=== PATIENT | male | born 1985 | race Caucasian/White ===

== ENCOUNTER 2021-11-20 11:22 | Emergency (ER) | payer MEDICAID ==
[~2021-11-20] VITALS: Ht 193 cm; Wt 63.6 kg
[2021-11-20] MEDS ORDERED: normal saline 1000ML IV soln IVB ONE (13:20)
[2021-11-20] MEDS ORDERED: folic acid 1mg/0.2ml inj IV ONE (13:20)
[2021-11-20] MEDS ORDERED: thiamine 100mg/ml 2ml inj. IV ONE (13:20)
[2021-11-20] MEDS ORDERED: ondansetron/PF 4mg/2ml inj IV ONE (13:20)
[2021-11-20] MEDS ORDERED: LORazepam 2 mg/ml vial IV ONE ×2 (13:20→14:45)
[2021-11-20 14:13] LABS: BASOPHILS # (AUTO) 0.1 X10'3 (0-0.2); BASOPHILS % (AUTO) 1.1 % (0-1); EOSINOPHILS # (AUTO) 0.1 X10'3 (0-0.9); EOSINOPHILS % (AUTO) 1.6 % (0-6); HEMATOCRIT 34.8 % (42.0-52.0); HEMOGLOBIN 11.8 g/dl (14.0-17.9); LYMPHOCYTES # (AUTO) 1.2 X10'3 (1.1-4.8); LYMPHOCYTES % (AUTO) 23.3 % (21-51); MEAN CORPUSCULAR HEMOGLOBIN 33.7 PG (27.0-31.0); MEAN PLATELET VOLUME 9.1 FL (7.4-10.4); MONOCYTES # (AUTO) 0.8 X10'3 (0-0.9); MONOCYTES % (AUTO) 15.3 % (2-12); NEUTROPHILS % (AUTO) 58.7 % (42-75); PLATELET COUNT 81 X10'3 (140-440); RED BLOOD COUNT 3.52 X10'6 (4.70-6.10); RED CELL DISTRIBUTION WIDTH 14.3 % (11.5-14.5); WHITE BLOOD COUNT 5.1 X10'3 (4.5-11.0)
[2021-11-20 14:34] LABS: ALANINE AMINOTRANSFERASE 56 U/L (12-78); ALBUMIN 2.7 G/DL (3.4-5.0); ALBUMIN/GLOBULIN RATIO 0.5 (1.1-1.5); ALKALINE PHOSPHATASE 120 IU/L (46-116); ANION GAP 6 (8-16); ASPARTATE AMINO TRANSFERASE 105 U/L (10-37); BILIRUBIN,TOTAL 2.2 MG/DL (0.1-1.0); BLOOD UREA NITROGEN 4 MG/DL (7-18); BUN/CREATININE RATIO 5.2 (5.4-32.0); CALCIUM 8.8 MG/DL (8.5-10.1); CHLORIDE 103 MMOL/L (99-107); CREATININE 0.77 MG/DL (0.60-1.10); ETHANOL < 0.010 GM/DL (0.0-0.010); LIPASE 92 U/L (73-393); POTASSIUM 3.5 MMOL/L (3.5-5.1); SODIUM 135 MMOL/L (135-145); TOTAL CARBON DIOXIDE 26.2 MMOL/L (24-32); TOTAL PROTEIN 8.4 G/DL (6.4-8.2); eGFR > 90 ML/MIN
[2021-11-20 14:44] LABS: GLUCOSE 104 MG/DL (70-104)
[2021-11-20] MEDS ORDERED: ONDA4TAB12 PO (14:44)
[2021-11-20] MEDS ORDERED: GABA100C PO (14:44)
[2021-11-20] MEDS ORDERED: LORA-269 PO (14:44)
[2021-11-20 14:55] LABS: PLATELET ESTIMATE DECREASED; TOTAL CELLS COUNTED 100
--- NOTE | 2021-11-20 15:12 | NUR ---
[facility] CALLED AND INSTRUCTED TO TAKE PT TO [facility] [address] AND THEN TO [facility]. INFORMED FAST TRACK RN THAT PT IS TO WAIT IN THE ER LOBBY FOR [facility].
[2021-11-20 15:13] VITALS: BP 139/78
== END 2021-11-20 15:20 | disposition home or self-care (01) ==
LOC: ER 11:23
DX: F10.230 Alcohol dependence with withdrawal, uncomplicated (principal); Z79.899 Other long term (current) drug therapy; Y90.9 Presence of alcohol in blood, level not specified
CPT/HCPCS: 36415; 80053; 80320; 83690; 85007; 85025; 96361; 96374; 96375; 99284; J2060; J2405; J3411; J3490; J7030

== ENCOUNTER 2022-04-02 12:37 | Emergency (ER) | payer MEDICAID ==
[~2022-04-02] VITALS: Ht 193 cm; Wt 76.4 kg
[~2022-04-02 12:37] MED LIST: GABA100C PO; LORA-269 PO; ONDA4TAB12 PO
[2022-04-02 14:16] VITALS: BP 116/66
== END 2022-04-02 14:25 | disposition home or self-care (01) ==
LOC: ER 12:38
DX: S90.01XA Contusion of right ankle, initial encounter (principal); F10.29 Alcohol dependence with unspecified alcohol-induced disorder; X58.XXXA Exposure to other specified factors, initial encounter; Y93.89 Activity, other specified; Y92.89 Other specified places as the place of occurrence of the external cause; Y99.8 Other external cause status
CPT/HCPCS: 99284

== ENCOUNTER 2022-04-04 09:13 | Emergency (ER) | payer MEDICAID ==
[~2022-04-04] VITALS: Ht 193 cm; Wt 75.0 kg
[2022-04-04] MEDS ORDERED: chlordiazePOXIDE 25mg capsule PO ONE (11:35)
[2022-04-04] MEDS ORDERED: LORazepam 2 mg/ml vial IV ONE ×2 (11:35→13:15)
[2022-04-04] MEDS ORDERED: normal saline 1000ML IV soln IVB ONE (11:35)
[2022-04-04] MEDS ORDERED: ondansetron/PF 4mg/2ml inj IV ONE (11:35)
[2022-04-04 12:01] LABS: EOSINOPHILS # (AUTO) 0.2 X10'3 (0-0.9); RED CELL DISTRIBUTION WIDTH 13.2 % (11.5-14.5)
[2022-04-04 12:03] LABS: BASOPHILS # (AUTO) 0.1 X10'3 (0-0.2); BASOPHILS % (AUTO) 1.1 % (0-1); EOSINOPHILS % (AUTO) 2.4 % (0-6); HEMATOCRIT 47.6 % (42.0-52.0); HEMOGLOBIN 16.1 g/dl (14.0-17.9); LYMPHOCYTES # (AUTO) 2.3 X10'3 (1.1-4.8); LYMPHOCYTES % (AUTO) 27.9 % (21-51); MEAN CORPUSCULAR HEMOGLOBIN 31.5 PG (27.0-31.0); MEAN CORPUSCULAR HGB CONC 33.9 g/dL (33.0-36.5); MEAN CORPUSCULAR VOLUME 93.1 FL (78-98); MEAN PLATELET VOLUME 9.1 FL (7.4-10.4); MONOCYTES # (AUTO) 0.7 X10'3 (0-0.9); MONOCYTES % (AUTO) 8.6 % (2-12); NEUTROPHILS # (AUTO) 4.9 X10'3 (1.8-7.7); PLATELET COUNT 278 X10'3 (140-440); RED BLOOD COUNT 5.11 X10'6 (4.70-6.10); WHITE BLOOD COUNT 8.2 X10'3 (4.5-11.0)
[2022-04-04 12:13] LABS: APTT 28 SECONDS (22-32)
[2022-04-04 12:14] LABS: ALANINE AMINOTRANSFERASE 23 U/L (12-78); ALBUMIN 4.1 G/DL (3.4-5.0); ALKALINE PHOSPHATASE 99 IU/L (46-116); ANION GAP 8 (8-16); ASPARTATE AMINO TRANSFERASE 19 U/L (10-37); BILIRUBIN,TOTAL 0.5 MG/DL (0.1-1.0); BLOOD UREA NITROGEN 15 MG/DL (7-18); BUN/CREATININE RATIO 14.2 (5.4-32.0); CALCIUM 9.3 MG/DL (8.5-10.1); CHLORIDE 102 MMOL/L (99-107); CREATININE 1.06 MG/DL (0.60-1.10); ETHANOL < 0.010 GM/DL (0.0-0.010); GLUCOSE 114 MG/DL (70-104); LIPASE 132 U/L (73-393); POTASSIUM 4.3 MMOL/L (3.5-5.1); SODIUM 137 MMOL/L (135-145); TOTAL CARBON DIOXIDE 27.1 MMOL/L (24-32); TOTAL PROTEIN 8.3 G/DL (6.4-8.2); eGFR 78 ML/MIN
[2022-04-04] MEDS ORDERED: LACT10SO3 PO (13:16)
[2022-04-04] MEDS ORDERED: CHLO25CA10 PO (13:16)
[2022-04-04 14:49] VITALS: BP 126/81
== END 2022-04-04 14:50 | disposition home or self-care (01) ==
LOC: ER 09:14
DX: F10.239 Alcohol dependence with withdrawal, unspecified (principal); Z20.822 Contact with and (suspected) exposure to COVID-19; F10.229 Alcohol dependence with intoxication, unspecified; Z79.899 Other long term (current) drug therapy
CPT/HCPCS: 36415; 80053; 80320; 82140; 83690; 85025; 85610; 85730; 87811; 96361; 96374; 96375; 96376; 99285; J2060; J2405; J7030

== ENCOUNTER 2024-01-06 20:22 | Emergency (ER) | payer MEDICAID ==
[~2024-01-06] VITALS: Ht 193 cm; Wt 86.4 kg
[~2024-01-06 20:22] MED LIST changes: +CHLO25CA10 PO; +LACT10SO3 PO; +ONDA-243 PO; -ONDA4TAB12 PO; +SERT25TA PO
[2024-01-06] MEDS: normal saline 1000ml 1,000 ML IV ONE (21:12)
[2024-01-06] MEDS: thiamine 100mg tablet PO ONE (21:25)
[2024-01-06 21:33] LABS: BASOPHILS # (AUTO) 0.1 X10'3 (0-0.2); BASOPHILS % (AUTO) 1.1 % (0-1); EOSINOPHILS # (AUTO) 0.2 X10'3 (0-0.9); EOSINOPHILS % (AUTO) 4.3 % (0-6); HEMATOCRIT 35.8 % (42.0-52.0); HEMOGLOBIN 11.7 g/dl (14.0-17.9); LYMPHOCYTES # (AUTO) 1.8 X10'3 (1.1-4.8); MEAN CORPUSCULAR HEMOGLOBIN 28.7 PG (27.0-31.0); MEAN CORPUSCULAR HGB CONC 32.6 g/dL (33.0-36.5); MEAN CORPUSCULAR VOLUME 88.1 FL (78-98); MEAN PLATELET VOLUME 9.2 FL (7.4-10.4); MONOCYTES # (AUTO) 0.8 X10'3 (0-0.9); MONOCYTES % (AUTO) 14.5 % (2-12); NEUTROPHILS # (AUTO) 2.7 X10'3 (1.8-7.7); NEUTROPHILS % (AUTO) 48.1 % (42-75); PLATELET COUNT 148 X10'3 (140-440); RED BLOOD COUNT 4.06 X10'6 (4.70-6.10); RED CELL DISTRIBUTION WIDTH 17.3 % (11.5-14.5); WHITE BLOOD COUNT 5.5 X10'3 (4.5-11.0)
[2024-01-06] MEDS: LORazepam 2 mg/ml vial IV ONE (21:34)
[2024-01-06 21:48] LABS: APTT 28 SECONDS (22-32); INR 1.2 INR; PROTHROMBIN TIME 12.8 SECONDS (9.0-12.0)
[2024-01-06 21:49] LABS: ALANINE AMINOTRANSFERASE 65 U/L (12-78); ALBUMIN 3.4 G/DL (3.4-5.0); ALBUMIN/GLOBULIN RATIO 0.9 (1.1-1.5); ALKALINE PHOSPHATASE 145 IU/L (46-116); ANION GAP 8 (8-16); ASPARTATE AMINO TRANSFERASE 100 U/L (10-37); BILIRUBIN,TOTAL 0.9 MG/DL (0.1-1.0); BLOOD UREA NITROGEN 10 MG/DL (7-18); BUN/CREATININE RATIO 13.7 (10.0-20.0); CALCIUM 8.4 MG/DL (8.5-10.1); CHLORIDE 106 MMOL/L (99-107); CREATININE 0.73 MG/DL (0.60-1.10); ETHANOL 114 MG/DL (<10); GLUCOSE 93 MG/DL (70-104); MAGNESIUM 1.5 MG/DL (1.5-2.4); POTASSIUM 4.3 MMOL/L (3.5-5.1); SODIUM 142 MMOL/L (135-145); TOTAL CARBON DIOXIDE 28.3 MMOL/L (24-32); TOTAL PROTEIN 7.2 G/DL (6.4-8.2); eCRCL 164 ML/MIN; eGFR > 90 ML/MIN
[2024-01-07] MEDS ORDERED: CHLO25CA10 PO (00:23)
[2024-01-07] MEDS ORDERED: NALT50TA5 PO (00:23)
[2024-01-07 02:39] VITALS: BP 113/74; PULSE 84; RESP 16; TEMP 98.9; O2SAT 94
== END 2024-01-07 02:42 | disposition home or self-care (01) ==
LOC: ER 20:22 → MERGE 20:22 → ER 01-07 02:42
DX: F10.10 Alcohol abuse, uncomplicated (principal); F32.A Depression, unspecified; R79.1 Abnormal coagulation profile; Z79.899 Other long term (current) drug therapy
CPT/HCPCS: 36415; 80053; 80320; 83735; 85025; 85610; 85730; 96361; 96374; 99285; J2060; J7030